=== PATIENT | male | born 1935 | race Caucasian/White ===

== ENCOUNTER 2021-05-26 13:53 | Outpatient (CLI) | payer OTHER, BC | END 2021-05-26 19:28 | disposition home or self-care (01) | LOC: SRD 13:53 | PROVIDERS: ATTEND Internal Medicine | DX: Z01.818 Encounter for other preprocedural examination (principal); M17.12 Unilateral primary osteoarthritis, left knee; M85.88 Other specified disorders of bone density and structure, other site; I70.90 Unspecified atherosclerosis | CPT/HCPCS: 73565 ==

== ENCOUNTER 2021-09-29 05:00 | Inpatient (IN) | payer OTHER, MEDICARE, SELFPAY ==
[2021-09-27 12:06] LABS: BASOPHILS # (AUTO) 0.1 K/uL (0.0-0.2); BASOPHILS % (AUTO) 2.8 % (0.0-2.0); EOSINOPHILS # (AUTO) 0.1 K/uL (0.0-0.4); EOSINOPHILS % (AUTO) 1.8 % (0.0-4.0); HEMATOCRIT 43.9 % (36-54); HEMOGLOBIN 14.6 g/dL (14.0-18.0); LYMPHOCYTES # (AUTO) 0.9 K/uL (1.0-5.5); LYMPHOCYTES % (AUTO) 25.1 % (20.5-51.5); MEAN CORPUSCULAR HEMOGLOBIN 32 pg (27-31); MEAN CORPUSCULAR HGB CONC 33 % (32-36); MEAN CORPUSCULAR VOLUME 96 fL (79.0-98.0); MONOCYTES # (AUTO) 0.3 K/uL (0.0-1.0); MONOCYTES % (AUTO) 9.3 % (1.7-9.3); NEUTROPHILS # (AUTO) 2.1 K/uL (1.8-7.7); PLATELET COUNT (AUTO) 150 K/uL (130-430); RED BLOOD CELL COUNT(AUTO) 4.58 MIL/uL (4.2-6.2); RED CELL DISTRIBUTION WIDTH 12.9 % (9.0-15.0); WHITE BLOOD COUNT (AUTO) 3.5 K/uL (4.8-10.8)
[2021-09-27 12:25] LABS: ALANINE AMINOTRANSFERASE 18 U/L (12-78); ALBUMIN 3.6 g/dL (3.4-4.8); ANION GAP 6 (5-15); ASPARTATE AMINOTRANSFERASE 13 U/L (10-37); CALCIUM 8.5 mg/dL (8.4-11.0); CHLORIDE 109 mmol/L (98-107); CREATININE 1.28 mg/dL (0.55-1.30); GLUCOSE 90 mg/dL (70-99); POTASSIUM 4.2 mmol/L (3.5-5.1); SODIUM SERUM 145 mmol/L (136-145); TOTAL BILIRUBIN 0.8 mg/dL (0.0-1.0); UREA NITROGEN, BLOOD 25 mg/dL (8-21)
[2021-09-27 12:29] LABS: PROTHROMBIN TIME 10.7 SECS (9.5-12.5)
[~2021-09-29] VITALS: Ht 172.7 cm; Wt 78.0 kg
[2021-09-29] MEDS ORDERED: CELECOXIB 200 MG CAPSULE ONE (06:48)
[2021-09-29] MEDS ORDERED: ACETAMINOPHEN 500 MG TABLET ONE (06:48)
[2021-09-29] MEDS ORDERED: PREGABALIN 75 MG CAPSULE (LYRICA) ONE (06:48)
[2021-09-29] MEDS ORDERED: PANTOPRAZOLE SODIUM 40 MG TAB ONE (06:56)
[2021-09-29] MEDS ORDERED: CEFAZOLIN 1 GM IVPB PREMIX 50 ML IV ONE (07:19)
[2021-09-29] MEDS ORDERED: DEXAMETHASONE SOD PHOSPHATE 4 MG/ML VIAL IVP ONE (08:03)
[2021-09-29] MEDS ORDERED: TRANEXAMIC ACID 1,000 MG/10 ML VIAL IV ONE (08:03)
[2021-09-29] MEDS ORDERED: KETOROLAC TROMETHAMINE 30 MG VIAL IVP ONE (08:03)
[2021-09-29] MEDS ORDERED: NS 1000 ML IV.SOLN IV ONE (08:03)
[2021-09-29] MEDS ORDERED: BUPIVACAINE /PF 0.25% 30 ML VIAL INJ ONE (08:03)
[2021-09-29] MEDS ORDERED: NS IRRIG SOLN 1000 ML IR ONE (08:03)
[2021-09-29] MEDS ORDERED: LR 1,000 ML IV.SOLN IV ONE (08:03)
[2021-09-29] MEDS ORDERED: NS 50 ML BAG IV ONE (08:03)
[2021-09-29] MEDS ORDERED: METO-540 (08:16)
[2021-09-29] MEDS ORDERED: ASPI-1393 PO (08:16)
[2021-09-29] MEDS ORDERED: LISI20TA30 PO (08:16)
[2021-09-29] MEDS ORDERED: CELECOXIB 200 MG CAPSULE PO ONE (08:45)
[2021-09-29] MEDS ORDERED: DEXAMETHASONE SOD PHOSPHATE 10 MG/ML VIAL IVP ONE (08:45)
[2021-09-29] MEDS ORDERED: PREGABALIN 75 MG CAPSULE (LYRICA) PO ONE (08:45)
[2021-09-29] MEDS ORDERED: PANTOPRAZOLE SODIUM 40 MG TAB PO ONE (08:45)
[2021-09-29] MEDS ORDERED: ACETAMINOPHEN 500 MG TABLET PO ONE (08:45)
[2021-09-29] MEDS ORDERED: CEFAZOLIN SOD 1 GM in D5W 50 ML IV ONE (08:45)
[2021-09-29] MEDS ORDERED: KETOROLAC TROMETHAMINE 30 MG VIAL IVP PRN (09:00)
[2021-09-29] MEDS ORDERED: MORPHINE 4 MG INJ. 4 MG/ML VIAL IVP PRN (09:00)
[2021-09-29] MEDS ORDERED: METOCLOPRAMIDE HCL 10 MG/2 ML VIAL IVP PRN (09:00)
[2021-09-29] MEDS ORDERED: HYDROcodone/ACETAMIN 5-325 MG TAB (NORCO/ VICODIN) PO PRN (11:15)
[2021-09-29] MEDS ORDERED: ONDANSETRON HCL 4 MG/2 ML VIAL IVP PRN (11:15)
[2021-09-29] MEDS ORDERED: NALOXONE HCL 0.4 MG/ML AMP (NARCAN) IVP PRN (11:15)
[2021-09-29] MEDS ORDERED: ACETAMINOPHEN 325 MG TABLET PO PRN (11:15)
[2021-09-29] MEDS ORDERED: SENNOSIDES 8.6 MG TABLET PO PRN (11:15)
[2021-09-29] MEDS ORDERED: DIPHENHYDRAMINE HCL 25 MG CAPSULE PO PRN (11:15)
[2021-09-29] MEDS ORDERED: HYDROcodone/ACETAMIN 7.5-325 MG TAB PO PRN (11:15)
--- NOTE | 2021-09-29 12:15 | NUR ---
Patient transferred to unit in stable condition, accompanied by sonBebeto.
[2021-09-29 12:30] VITALS: BP_SYST 163
[2021-09-29 13:08] VITALS: BP_SYST 163
--- NOTE | 2021-09-29 14:30 | NUR ---
Patient used walker; was assisted by CHARO Tobin to bathroom and back to bed.
[2021-09-29] MEDS ORDERED: lisinopriL 20 MG TABLET PO SCH (17:00)
[2021-09-29] MEDS: CEFAZOLIN 1 GM IVPB PREMIX 50 ML IV SCH ×2 (17:09→20:56)
--- NOTE | 2021-09-29 17:09 | NUR ---
Scheduled IV abx, IVP, and po medications given per order. Patient stable at this time.
[2021-09-29 17:25] VITALS: BP_SYST 156
--- NOTE | 2021-09-29 18:15 | NUR ---
Patient resting comfortably in bed with no distress noted. Patient stable since transfer to unit.
[2021-09-29 20:00] VITALS: BP_SYST 147
--- NOTE | 2021-09-29 22:00 | NUR ---
ROUNDING NOTES Patient resting in bed - no s/s pain or distress noted. Respirations even and unlabored. Head of bed elevated. IV site patent - no s/s redness, infection, or infiltration. Bed locked and in lowest position. Call light within reach. Bed alarm on.
[2021-09-30] VITALS: BP_SYST 125
[2021-09-30 08:15] VITALS: BP_SYST 138
--- NOTE | 2021-09-30 08:15 | NUR ---
OPENING NOTES: PATIENT RESTING IN BED. NO S/S OF ACUTE DISTRESS NOTED. FALL, SAFETY AND ASPIRATION MEASURES REINFORCED. CALL LIGHT WITHIN REACH.
[2021-09-30] MEDS ORDERED: METOPROLOL SUCCINATE 25 MG TAB.SR.24H (TOPROL XL) PO SCH (09:00)
[2021-09-30] MEDS ORDERED: ASPIRIN 81 MG TABLET(ECOTRIN) PO SCH (09:00)
[2021-09-30] MEDS ORDERED: Aspirin Ec PO (09:11)
[2021-09-30] MEDS ORDERED: SENN-153 PO (09:11)
--- NOTE | 2021-09-30 10:49 | NUR ---
Nutrition Update Robert Scale 15 noted. Pt admitted for unilateral primary OA, L knee. Diet: cardiac BMI: 26.2 kg/m2 RD to follow per nutrition care standards.
--- NOTE | 2021-09-30 12:15 | NUR ---
RN NOTES: PATIENT C/O PAIN ON LEFT KNEE 04/25. PRN PAIN MED GIVEN. FALL AND SAFETY MEASURES RENDERED. CALL LIGHT WITHIN REACH.
[2021-09-30 12:54] VITALS: BP_SYST 136
[2021-09-30 15:25] VITALS: BP_SYST 132
[2021-09-30] MEDS ORDERED: SENN8.6T19 PO (15:44)
[2021-09-30] MEDS ORDERED: ASPI-1393 PO (15:45)
[2021-09-30 16:00] VITALS: BP_SYST 132
--- NOTE | 2021-09-30 16:15 | NUR ---
D/C Patient Patient given medication reconciliation form and D/C instructions. Exit Care provided. Patient verbalized understanding. MD discussed with patient the results and treatment provided. Ambulatory with unsteady gait for discharge to home. Patient in stable condition, ID band removed. IV catheter removed, intact and dressing applied, no active bleeding. Dressing at left knee done by the MD, clean, dry and intact and to be removed after 2 days. Advised to make appointment with MD. All belongings sent with patient.
== END 2021-09-30 16:00 | disposition home health service (06) | DRG 470 ==
LOC: SMU 05:00
PROVIDERS: ADMIT Orthopaedic Surgery Sports Medicine; ATTEND Orthopaedic Surgery Sports Medicine
PROC: 0SRD0J9 Replacement of Left Knee Joint with Synthetic Substitute, Cemented, Open Approach (ICD-10-PCS; principal; 2021-09-29 08:03)
DX: M17.12 Unilateral primary osteoarthritis, left knee (principal); Z20.822 Contact with and (suspected) exposure to COVID-19; Z79.82 Long term (current) use of aspirin; Z79.899 Other long term (current) drug therapy
CPT/HCPCS: 36415; 73560-TC; 80053; 85025; 85610-TC; 85730-TC; 87081; 88305; 88311; 93005; 97110-GP; 97116-GP; 97530-GP; J0690; J1100; J1885; J3490; J7030; J7120